=== PATIENT | male | born 1980 | race Caucasian/White ===

== ENCOUNTER 2021-07-09 15:54 | Outpatient (CLI) | payer BC, SELFPAY ==
[2021-07-09 17:03] LABS: Epithelial Count Semen 0-4 /hpf; Sperm Immotility 60 % (50-60); Sperm Non-Progressive Motility 10 % (5-10); Sperm Progressive Motility 30 % (31-34); Viscosity Semen High Viscosity; Volume Semen 0.5 mL (2-5); White Blood Count Semen 0-4 /hpf
[2021-07-09 17:09] LABS: Pathology Referral Yes
[2021-07-09 17:13] LABS: PH Semen 8.5 (7.0-8.0)
[2021-07-09 18:39] LABS: Sperm Vitality-% Live Sperm 24 %
== END 2021-07-09 15:55 | disposition home or self-care (01) ==
LOC: LAB 16:08
PROVIDERS: Visit Provider Obstetrics & Gynecology
DX: Z31.69 Encounter for other general counseling and advice on procreation (principal)
CPT/HCPCS: 80500; 89320

== ENCOUNTER 2021-07-23 10:03 | Outpatient (CLI) | payer BC, SELFPAY ==
[2021-07-23 10:40] LABS: Sperm Progressive Motility 10 % (31-34); Viscosity Semen Normal
[2021-07-23 10:41] LABS: Epithelial Count Semen 0-4 /hpf; Sperm Immotility 85 % (50-60); Sperm Non-Progressive Motility 5 % (5-10)
[2021-07-23 10:42] LABS: PH Semen 8.5 (7.0-8.0)
[2021-07-23 11:19] LABS: Pathology Referral Yes
[2021-07-23 11:45] LABS: Sperm Vitality-% Live Sperm 18 %
== END 2021-07-23 10:04 | disposition home or self-care (01) ==
LOC: LAB 10:15
PROVIDERS: Visit Provider Obstetrics & Gynecology
DX: Z31.69 Encounter for other general counseling and advice on procreation (principal)
CPT/HCPCS: 80500; 89320

== ENCOUNTER → 2023-02-09 10:10 | Outpatient (BNVA) | payer BC, SELFPAY | PROVIDERS: PCP Family Medicine; Visit Provider Family Medicine | DX: Z13.1 Encounter for screening for diabetes mellitus (principal); Z13.6 Encounter for screening for cardiovascular disorders; I10 Essential (primary) hypertension; R86.9 Unspecified abnormal finding in specimens from male genital organs; Z76.89 Persons encountering health services in other specified circumstances | CPT/HCPCS: 80053; 80061 ==